=== PATIENT | male | born 1965 | race Caucasian/White ===

== ENCOUNTER 2018-01-11 10:17 | Day surgery (SDC) | payer MEDICARE, OTHER ==
[2018-01-07 11:59] LABS: HEMATOCRIT 39.8 % (37.9-51.0); MEAN CORPUSCULAR HGB CONC 35.2 g/dL (32.0-36.0); MEAN CORPUSCULAR VOLUME 94 fl (80-97); PLATELET COUNT 249 10^3/uL (150-450); RED BLOOD COUNT 4.24 10^6/uL (4.35-5.55); RED CELL DISTRIBUTION WIDTH 13.6 % (11.5-14.0); WHITE BLOOD COUNT 8.1 10^3/uL (4.0-10.5)
[2018-01-07 12:05] LABS: INTERNATIONAL RATION (INR) 0.91; PROTHROMBIN TIME 12.7 SEC (11.4-15.4)
[2018-01-07 12:10] LABS: APPEARANCE,URINE CLEAR; BILIRUBIN,URINE NEGATIVE (NEGATIVE); COLOR,URINE COLORLESS; GLUCOSE, URINE NEGATIVE (NEGATIVE); KETONES,URINE NEGATIVE (NEGATIVE); LEUKOCYTE ESTERASE,URINE NEGATIVE (NEGATIVE); NITRITE,URINE NEGATIVE (NEGATIVE); PROTEIN,URINE NEGATIVE (NEGATIVE); URINE SPECIFIC GRAVITY 1.008; UROBILINOGEN,URINE NEGATIVE mg/dL (<2.0)
--- NOTE | 2018-01-07 12:45 | RADIOLOGY REPORT (SQ) ---
EXAM DESCRIPTION: CHEST PA/LATERAL COMPLETED DATE/TIME: 01/07/2018 12:06 pm REASON FOR STUDY: PRE OP COMPARISON: Chest films 07/13/2011, 07/12/2011 EXAM PARAMETERS: NUMBER OF VIEWS: two views TECHNIQUE: Digital Frontal and Lateral radiographic views of the chest acquired. RADIATION DOSE: NA LIMITATIONS: none FINDINGS: LUNGS AND PLEURA: Chronic elevation right hemidiaphragm with bandlike scarring or atelecta sis at the right lung base. No acute infiltrates. No pleural effusion or pneumothorax. MEDIASTINUM AND HILAR STRUCTURES: No masses or contour abnormalities. HEART AND VASCULAR STRUCTURES: Mild cardiomegaly, stable BONES: No acute findings. HARDWARE: Dorsal column stimulator electrodes over the lower thoracic spine OTHER: No other significant finding. IMPRESSION: No acute changes TECHNICAL DOCUMENTATION: JOB ID: [id number] [employer]- All Rights Reserved Reading location - IP/workstation name: [email or web address]
--- NOTE | 2018-01-07 13:22 | EKG REPORT ---
SEVERITY:- NORMAL ECG - SINUS RHYTHM : Confirmed by: Serafin Teixeira MD 07-Jan-2018 13:21:44
[~2018-01-11 10:17] MED LIST: CEFAZOLIN 1 GM/D5W RTU 1 GM/50 ML RTUPB IV ONE; CEFAZOLIN 1 GM/D5W RTU 1 GM/50 ML RTUPB IV PRN; LACTATED RINGERS 1000 ML IV PRN; LIDOCAINE 0.5% INJ-PF (5 MG/ML) 50 ML SDV SUBCUT PRN
[2018-01-11] MEDS ORDERED: SODIUM BICARBONATE 8.4% INJ 50 MEQ/50 ML DISP.SYRIN ONE (12:48)
[2018-01-11] MEDS ORDERED: LIDOCAINE 1% INJ-PF (10 MG/ML) 30 ML SDV ONE (12:48)
[2018-01-11] MEDS ORDERED: BUPIVACAINE HCL 0.25% /EPINEPHRINE INJ/PF 30 ML SDV ONE (12:48)
[2018-01-11] MEDS ORDERED: PROPOFOL INJ 200 MG/20 ML VIAL IV ONE (13:32)
[2018-01-11] MEDS ORDERED: ONDANSETRON HCL INJ/PF 4 MG/2 ML SDV ONE (13:32)
[2018-01-11] MEDS ORDERED: MIDAZOLAM 2 MG/2 ML INJ ONE (13:32)
[2018-01-11] MEDS ORDERED: FENTANYL CITRATE INJ/PF 100 MCG/2 ML AMPUL ONE (13:32)
[2018-01-11] MEDS ORDERED: DIPHENHYDRAMINE HCL 50 MG/ML VIAL IV PRN (14:09)
[2018-01-11] MEDS ORDERED: MEPERIDINE HCL/PF INJ 25 MG/1 ML DISP.SYRIN IV PRN (14:09)
[2018-01-11] MEDS ORDERED: FENTANYL CITRATE INJ/PF 100 MCG/2 ML AMPUL IV PRN ×3 (14:09)
[2018-01-11] MEDS ORDERED: PROMETHAZINE HCL INJ 25 MG/1 ML VIAL IV PRN (14:09)
[2018-01-11] MEDS ORDERED: MORPHINE SULFATE 10 MG/ML INJ IV PRN (14:09)
[2018-01-11] MEDS ORDERED: CEFAZOLIN INJ 1 GM VIAL ONE (14:51)
[2018-01-11] MEDS ORDERED: OXYCODONE-ACETAMINOPHEN 5-325 MG TABLET PO PRN (14:59)
--- NOTE | 2018-01-11 15:37 | OPERATIVE REPORT E ---
Operative Report NAME: LEDA CORRALES : 1965 AGE: 52Y DATE OF SURGERY: 01/11/2018 ROOM: PREOPERATIVE DIAGNOSIS: Nonfunctional battery. POSTOPERATIVE DIAGNOSIS: Nonfunctional battery. PROCEDURE: Spinal cord stimulator battery replacement and revision. SURGEON: Champ Velasquez M.D. ELA TEACHER: ANGIE SCHERER M.D. ANESTHESIA: MAC. COMPLICATIONS: None. PROCEDURE IN DETAIL: After obtaining informed consent advising the patient of the risks and benefits, including serious neurological injury, bleeding, infection, allergic reaction, and , he was taken to the operating room. He was placed comfortably in a prone position. Comfort was assessed visually and verbally. He was then prepped with chlorhexidine with a suitable drying time prior to draping. The pulse generator was readily palpable. The previous midline scar was anesthetized with 1% lidocaine with bicarb followed by Xylocaine 0.25% with epinephrine. Sharp and blunt dissection was performed down to the pulse generator. This was readily identified. Electrocautery was minimally necessary for hemostasis. The old generator was removed easily. A small relaxing incision was made in the scar capsule of the pulse generator pocket to facilitate placement of the new generator. The new generator was connected to the electrode and the plug was placed in the other electrode sockets. All hex nuts were secured. Generator was placed in the pocket. Impedance was tested and was felt to be satisfactory. Good connection with *------* was obtained. The wound was then copiously irrigated with Betadine-containing irrigation solution. It was then closed with interrupted vertical mattress sutures with 2-0 Polysorb. The skin came nicely together. A 4-0 subcuticular suture was then placed. The region was cleansed again followed by placement of Dermabond tape and skin cement. When this was dry a suitable Tegaderm sponge dressing was placed on this. He was then taken back to the PACU for further postoperative care and monitoring. DICTATING PHYSICIAN: ANGIE SCHERER M.D. [id number] PHY#: [id number] ID: [id number] JOB#: [id number] ACCT: [id number] cc:ANGIE SCHERER M.D. >
[2018-01-11 16:26] VITALS: BP 139/91
== END 2018-01-11 16:15 | disposition home or self-care (01) ==
LOC: OROUT 10:17
PROVIDERS: ATTEND Pain Medicine Interventional Pain Medicine
DX: T85.193A Other mechanical complication of implanted electronic neurostimulator, generator, initial encounter (principal); Y83.8 Other surgical procedures as the cause of abnormal reaction of the patient, or of later complication, without mention of misadventure at the time of the procedure; G89.4 Chronic pain syndrome; M79.18 Myalgia, other site; E78.5 Hyperlipidemia, unspecified; I10 Essential (primary) hypertension; E03.9 Hypothyroidism, unspecified; M10.9 Gout, unspecified; E23.0 Hypopituitarism; Z79.899 Other long term (current) drug therapy; Z79.1 Long term (current) use of non-steroidal anti-inflammatories (NSAID); Z96.652 Presence of left artificial knee joint; Z87.820 Personal history of traumatic brain injury
CPT/HCPCS: 93005; 36415 ×2; 84132; 85027; 85610; 85730; 81001; 71046; 93010; 63688; C1820; J2250; J3490 ×3; J0690 ×2; J3010; J2405; J2704; 300